=== PATIENT | female | born 1980 | race Two or more races ===

== ENCOUNTER 2016-03-27 07:54 | Emergency (ER) | payer OTHER ==
[~2016-03-27] VITALS: Ht 167.6 cm; Wt 72.6 kg
[2016-03-27] MEDS ORDERED: MAG HYDROX/AL HYDROX/SIMETH 30 ML UDC ONE (08:16)
[2016-03-27] MEDS ORDERED: KETOROLAC TROMETHAMINE 15 MG/ML VIAL ONE (08:16)
[2016-03-27] MEDS ORDERED: ONDANSETRON HCL/PF 4 MG/2 ML VIAL ONE (08:16)
[2016-03-27] MEDS ORDERED: LIDOCAINE VISCOUS 2% UD 15 ML UDC ONE (08:17)
[2016-03-27] MEDS: ONDANSETRON HCL/PF 4 MG/2 ML VIAL IVP ONE (08:34)
[2016-03-27] MEDS: KETOROLAC TROMETHAMINE INJ 30 MG/ML VIAL IV ONE (08:35)
[2016-03-27] MEDS: LIDOCAINE VISCOUS 2% UD 15 ML UDC MM ONE (08:36)
[2016-03-27] MEDS: MAG HYDROX/AL HYDROX/SIMETH 30 ML UDC PO ONE (08:36)
[2016-03-27 08:39] LABS: BASOPHILS % (AUTO) 0.3 % (0.0-2.0); DIFF TOTAL % 100 %; EOSINOPHILS % (AUTO) 0.2 % (0.0-6.0); HEMATOCRIT 45 % (33-45); HEMOGLOBIN 14.9 g/dL (11.5-14.8); LYMPHOCYTES # (AUTO) 1.8 /CMM (0.8-4.8); LYMPHOCYTES % (AUTO) 18.5 % (20.0-44.0); MEAN CORPUSCULAR HEMOGLOBIN 29 PG (26.0-33.0); MEAN CORPUSCULAR HGB CONC 34 g/dl (31.0-36.0); MEAN CORPUSCULAR VOLUME 86 fL (82-100); MONOCYTES # (AUTO) 0.4 /CMM (0.1-1.30); MONOCYTES % (AUTO) 4.2 % (2.0-12.0); NEUTROPHILS # (AUTO) 7.4 /CMM (1.8-8.9); NEUTROPHILS % (AUTO) 76.8 % (43.0-81.0); PLATELET COUNT (AUTO) 378 /CMM (150-450); RED BLOOD CELL COUNT(AUTO) 5.16 MIL/uL (4.0-5.2); WHITE BLOOD COUNT (AUTO) 9.6 K/uL (4.3-11.0)
[2016-03-27 08:43] LABS: KETONES,URINE 1+ (NEGATIVE); LEUKOCYTE ESTERASE ,URINE NEGATIVE (NEGATIVE)
[2016-03-27 08:46] LABS: CALCIUM, SERUM 9.8 mg/dL (8.5-10.1); CREATININE 0.7 mg/dL (0.6-1.3); POTASSIUM 3.9 mmol/L (3.5-5.1)
[2016-03-27 08:52] LABS: ALBUMIN 4.9 g/dL (3.4-5.0); BILIRUBIN,DIRECT 0.1 mg/dL (0.0-0.2); BILIRUBIN,TOTAL 0.3 mg/dL (0.2-1.0); INDIRECT BILIRUBIN 0.2 mg/dL (0.0-1.1); TOTAL PROTEIN, SERUM 8.4 g/dL (6.4-8.2)
[2016-03-27 08:55] LABS: PREGNANCY TEST URINE QUAL NEGATIVE (NEGATIVE)
[2016-03-27 08:59] LABS: ADD UA MICROSCOPIC YES
[2016-03-27 09:13] LABS: ADD URINE CULTURE NO; RBC,URINE NONE SEEN /HPF (0-2); WBC,URINE NONE SEEN /HPF (0-3)
[2016-03-27] MEDS ORDERED: BENZ200C45 PO (10:15)
[2016-03-27] MEDS ORDERED: IV NS 0.9% 1,000 ML ONE (10:27)
[2016-03-27] MEDS ORDERED: IV SET PRIMARY PUMP SET 1 EA INFUS.SET MC ONE (10:28)
[2016-03-27] MEDS: IV NS 0.9% 1,000 ML BAG IV ONE (10:40)
[2016-03-27] MEDS: PIPERACILLIN /TAZOBACTAM 3.375 G in IV D5W 50 ML IV ONE (10:43)
[2016-03-27 10:47] LABS: INR 0.91 (0.87-1.13); PROTHROMBIN TIME 9.8 SECS (9.5-12.7)
[2016-03-27 13:17] VITALS: BP 134/61
== END 2016-03-27 13:17 | disposition home or self-care (01) ==
LOC: ER 07:57
DX: K80.20 Calculus of gallbladder without cholecystitis without obstruction (principal); K21.9 Gastro-esophageal reflux disease without esophagitis
CPT/HCPCS: 36415; 76705-TC; 80048-TC; 80076-TC; 81000-TC; 83690-TC; 84703-TC; 85025-TC; 85730-TC; A4606; J1885; J2405; J2543; J7030; J7060; Z7610